=== PATIENT | female | born 1960 | race Caucasian/White ===

== ENCOUNTER → 2016-06-08 | Outpatient (CLI) | payer MEDICAID ==
--- NOTE | 2016-06-09 09:46 | MM ---
Reason for exam: screening (asymptomatic). Last mammogram was performed 1 year ago. History: Benign left US cyst aspiration of the left breast, April 21, 2009. Physical Findings: A clinical breast exam by your physician is recommended on an annual basis and results should be correlated with mammographic findings. MG 3D Screening Mammo W/Cad Bilateral CC and MLO view(s) were taken. Prior study comparison: June 17, 2015, right breast MG 3d work up w/cad RT. June 04, 2015, bilateral MG screening mammo w CAD. The breast tissue is heterogeneously dense. This may lower the sensitivity of mammography. No significant changes when compared with prior studies. ASSESSMENT: Benign, BI-RAD 2 RECOMMENDATION: Routine screening mammogram of both breasts in 1 year.
== END | disposition home or self-care (01) ==
LOC: RADMAMWWP 07:08
PROVIDERS: ATTEND Obstetrics & Gynecology
DX: Z12.31 Encounter for screening mammogram for malignant neoplasm of breast (principal)
CPT/HCPCS: 77063; G0202

== ENCOUNTER 2016-07-01 03:24 | Emergency (ER) | payer MEDICAID, OTHER ==
[2016-07-01 03:35] VITALS: RESP 16
--- NOTE | 2016-07-01 04:05 | ED ---
General Adult HPI - General Chief complaint: Extremity Injury, Upper Stated complaint: IHS/Shoulder Pain Time Seen by Provider: 07/01/16 03:59 Source: patient, RN notes reviewed Mode of arrival: ambulatory Limitations: no limitations - History of Present Illness Initial comments: Patient is a pleasant 55-year-old female presenting to the emergency Department with left shoulder pain. Patient was lifting a large patient which she felt a pull in her left shoulder. Patient points to the left proximal humerus/deltoid region. Patient states discomfort is minimal at this time. Patient is more worried that if she makes around movement symptoms could worsen. Discomfort is somewhat positional. No other area of injury. No history of chronic problems in this region. - Related Data Home Medications Medication Instructions Recorded Confirmed Levothyroxine Sodium [Tirosint] 75 mcg PO DAILY 07/03/15 07/01/16 B Complex-Vit C-Vit E-Zinc [Z-Bec] 1 tab PO DAILY 09/18/15 07/01/16 Biotin 5 mg PO DAILY 09/18/15 07/01/16 Ibuprofen [Motrin] 800 mg PO Q4-6H PRN 09/18/15 07/01/16 [place]-3 Fatty Acids/Fish Oil [Fish 1 each PO DAILY 09/18/15 07/01/16 Oil 1,000 mg Softgel] Allergies Allergy/AdvReac Type Severity Reaction Status Date / Time No Known Allergies Allergy Verified 07/01/16 03:35 Review of Systems ROS Statement: Those systems with pertinent positive or pertinent negative responses have been documented in the HPI. ROS Other: All systems not noted in ROS Statement are negative. Constitutional: Denies: fever Eyes: Denies: eye pain ENT: Denies: ear pain Respiratory: Denies: cough Cardiovascular: Denies: chest pain Endocrine: Denies: fatigue Gastrointestinal: Denies: abdominal pain Genitourinary: Denies: dysuria Musculoskeletal: Denies: back pain Skin: Denies: rash Neurological: Denies: weakness Past Medical History Past Medical History: Thyroid Disorder History of Any Multi-Drug Resistant Organisms: C-DIFF Date of last positivie culture/infection: c-diff MDRO Source:: 2004 Past Surgical History: Tonsillectomy Additional Past Surgical History / Comment(s): colonoscopy Past Anesthesia/Blood Transfusion Reactions: Motion Sickness, Postoperative Nausea & Vomiting (PONV) Past Psychological History: No Psychological Hx Reported Smoking Status: Former smoker Past Alcohol Use History: Occasional Additional Past Alcohol Use History / Comment(s): has smoked for 10 yrs. 1ppweek Past Drug Use History: None Reported - Past Family History Mother Family Medical History: No Reported History General Exam Limitations: no limitations General appearance: alert, in no apparent distress Head exam: Present: atraumatic Eye exam: Present: normal appearance Neck exam: Absent: tenderness Respiratory exam: Present: normal lung sounds bilaterally Cardiovascular Exam: Present: regular rate, normal rhythm Extremities exam: Present: normal inspection, full ROM. Absent: tenderness Neurological exam: Present: alert. Absent: motor sensory deficit Psychiatric exam: Present: normal affect, normal mood Skin exam: Absent: rash Course Vital Signs 07/01/16 03:31 Temperature 97.4 F L Pulse Rate 101 H Respiratory 16 Rate Blood Pressure 127/82 O2 Sat by Pulse 100 Oximetry Medical Decision Making - Medical Decision Making Patient reevaluated in updated. Patient requests return to work without limitations. - Radiology Data Interpreted by me: Left humerus x-ray shows no acute process Disposition Clinical Impression: Shoulder strain Disposition: HOME SELF-CARE Condition: Stable Instructions: Shoulder Sprain (ED) Additional Instructions: Please follow-up with [email or web address] in the next couple of days for recheck. Ice to affected area. [id number] Tylenol or Motrin as needed. Avoid heavy lifting/exertion. Return for increased pain, weakness, worsening symptoms or other concerns. If symptoms continue consider MRI or orthopedic evaluation. Referrals: Yo West MD [Primary Care Provider] - 1-2 days
--- NOTE | 2016-07-01 04:58 | XR ---
EXAM: XR Left Humerus, 2 or More Views. CLINICAL HISTORY: Reason: Pain TECHNIQUE: Frontal and lateral views of the left humerus. COMPARISON: No relevant prior studies available. FINDINGS: Bones/joints: Unremarkable. No acute fracture. No dislocation. Soft tissues: Unremarkable. IMPRESSION: No acute bony abnormality
[2016-07-01 05:16] VITALS: BP 126/82; PULSE 97; TEMP 98.2
== END 2016-07-01 04:55 | disposition home or self-care (01) ==
LOC: EC 03:24
DX: S46.912A Strain of unspecified muscle, fascia and tendon at shoulder and upper arm level, left arm, initial encounter (principal); E07.9 Disorder of thyroid, unspecified; Z87.891 Personal history of nicotine dependence; Z79.899 Other long term (current) drug therapy; X50.0XXA Overexertion from strenuous movement or load, initial encounter; Y93.F2 Activity, caregiving, lifting
CPT/HCPCS: 99283

== ENCOUNTER → 2017-02-22 | Outpatient (CLI) | payer MEDICAID ==
--- NOTE | 2017-02-22 08:25 | US ---
EXAMINATION TYPE: US abdomen complete DATE OF EXAM: 02/22/2017 COMPARISON: NONE CLINICAL HISTORY: 56-year-old female abnormal Liver Function R94.5. Technique: Multiple sonographic i mages of the abdomen are obtained. FINDINGS: LEVEL VIAL SEALER NOTES: Patient had extensive overlying bowel gas. Liver Length: 15.7 cm Gallbladder Wall: 0.3 cm CBD: 0.3 cm Spleen: 9.8 cm Right Kidney: 10.1 x 3.5 x 4.6 cm Left Kidney: 11.4 x 5.4 x 4.6 cm Pancreas: Obscured by bowel gas Liver: Relatively homogeneous echotexture without focal lesion. Gallbladder: wnl Evidence for sonographic Suazo's sign: no CBD: wnl Spleen: partially obscured by overlying bowel gas Right Kidney: echogenic focus, possible nonobstructive calculus measuring 3 mm in the mid to lower p ole. No hydronephrosis. Left Kidney: Inferior pole obscured by bowel gas . No hydronephrosis. Upper IVC: wnl Abd Aorta: Proximal aorta and bifurcation obscured by bowel gas. There appears to be underlying athe rosclerotic irregularity and ectasia of the mid abdominal aorta up to 2.6 cm. IMPRESSION: 1. No specific sonographic abnormality of the liver. 2. No biliary ductal dilatation. 3. Possible 3 mm nonobstructive right renal calculus. 4. Lower pole left kidney obscured by bowel gas. 5. Ectatic mid abdominal aorta at 2.6 cm.
== END | disposition home or self-care (01) ==
LOC: RADUSWWP 07:03
PROVIDERS: ATTEND Internal Medicine Geriatric Medicine
DX: I77.811 Abdominal aortic ectasia (principal)
CPT/HCPCS: 76700

== ENCOUNTER 2017-06-16 18:25 | Emergency (ER) | payer MEDICAID ==
[2017-06-16] MEDS ORDERED: SODIUM CHLORIDE 0.9% 500 ML IV STA (18:36)
[2017-06-16] MEDS ORDERED: RX INFO: IV CONTRAST WAS GIVEN 1 EACH MISC MISCELLANE PRN (18:36)
--- NOTE | 2017-06-16 18:41 | ED ---
Abdominal Pain HPI - General Chief Complaint: Abdominal Pain Stated Complaint: R Abd pain Time Seen by Provider: 06/16/17 18:32 Source: patient Mode of arrival: ambulatory Limitations: no limitations - History of Present Illness Initial Comments: 56-year-old female patient presented to the emergency department today for evaluation of right lower quadrant abdominal pain. Patient states that the pain started 3 hours ago and has been steadily worsening since. Patient states she did take ibuprofen for pain relief however did not help. She states that when she attempted to urinate it did cause an increase in pain. Patient states the pain worsens when she moves. The pain is starting to radiate into her back. She states that the area is tender to the touch. She denies any nausea or vomiting with this. Denies any constipation or diarrhea. Denies any abnormal vaginal bleeding or discharge. Patient denies any recent rash, shortness breath, chest pain, diarrhea, back pain, numbness, tingling, dizziness , weakness, hematuria, dysuria, urinary urgency, urinary frequency, headache, visual changes, or any other complaints. - Related Data Home Medications Medication Instructions Recorded Confirmed Ibuprofen [Motrin] 800 mg PO Q4-6H PRN 09/18/15 06/16/17 Levothyroxine Sodium [Synthroid] 75 mcg PO DAILY 06/16/17 06/16/17 Previous Rx's Medication Instructions Recorded Hydrocodone/Acetaminophen [[place] 1 tab PO Q6HR PRN #8 tab 06/16/17 5-325] Allergies Allergy/AdvReac Type Severity Reaction Status Date / Time No Known Allergies Allergy Verified 06/16/17 18:56 Review of Systems ROS Statement: Those systems with pertinent positive or pertinent negative responses have been documented in the HPI. ROS Other: All systems not noted in ROS Statement are negative. Past Medical History Past Medical History: Thyroid Disorder History of Any Multi-Drug Resistant Organisms: C-DIFF Date of last positivie culture/infection: c-diff MDRO Source:: 2004 Past Surgical History: Tonsillectomy Additional Past Surgical History / Comment(s): colonoscopy Past Anesthesia/Blood Transfusion Reactions: Motion Sickness, Postoperative Nausea & Vomiting (PONV) Past Psychological History: No Psychological Hx Reported Smoking Status: Former smoker Past Alcohol Use History: Occasional Past Drug Use History: None Reported - Past Family History Mother Family Medical History: No Reported History General Exam Limitations: no limitations General appearance: alert, in no apparent distress, other Eye exam: Present: normal appearance, PERRL, EOMI. Absent: scleral icterus, conjunctival injection, periorbital swelling ENT exam: Present: normal exam, normal oropharynx, mucous membranes moist Respiratory exam: Present: normal lung sounds bilaterally. Absent: respiratory distress, wheezes, rales, rhonchi, stridor Cardiovascular Exam: Present: regular rate, normal rhythm, normal heart sounds. Absent: systolic murmur, diastolic murmur, rubs, gallop, clicks GI/Abdominal exam: Present: soft, tenderness (Exquisitely tender to the right lower quadrant), normal bowel sounds. Absent: distended, guarding, rebound, rigid Back exam: Present: normal inspection. Absent: CVA tenderness (R), CVA tenderness (L) Neurological exam: Present: alert, oriented X3, CN II-XII intact Psychiatric exam: Present: normal affect, normal mood Skin exam: Present: warm, dry, intact, normal color. Absent: rash Course Vital Signs 06/16/17 06/16/17 18:28 20:09 Temperature 98.4 F 97.1 F L Pulse Rate 88 82 Respiratory 20 18 Rate Blood Pressure 138/79 120/71 O2 Sat by Pulse 99 96 Oximetry Medical Decision Making - Medical Decision Making 56-year-old female patient presents to the emergency department today for evaluation of right lower quadrant abdominal pain. Physical examination did reveal right lower quadrant abdominal tenderness. Labs are unremarkable. Urinalysis does show small amount of blood. A CT of the abdomen and pelvis was obtained and did show mild small bowel ileus and right ovarian cyst. I did discuss findings with the patient. I did discuss possibility of early appendicitis not yet detected on CT. Return parameters were discussed in detail. She is instructed to follow-up with her primary care physician for recheck in 1-2 days. She is instructed to return here immediately for any new, worsening, or concerning symptoms. She verbalizes understanding and agrees with this plan. - Lab Data Result diagrams: 06/16/17 18:54 06/16/17 18:54 Lab Results 06/16/17 06/16/17 06/16/17 Range/Units 18:54 18:54 18:54 WBC 6.7 (3.8-10.6) k/uL RBC 4.17 (3.80-5.40) m/uL Hgb 13.8 (11.4-16.0) gm/dL Hct 40.2 (34.0-46.0) % MCV 96.3 (80.0-100.0) fL MCH 33.1 (25.0-35.0) pg MCHC 34.4 (31.0-37.0) g/dL RDW 12.3 (11.5-15.5) % Plt Count 322 (150-450) k/uL Neutrophils % 61 % Lymphocytes % 29 % Monocytes % 5 % Eosinophils % 2 % Basophils % 1 % Neutrophils # 4.1 (1.3-7.7) k/uL Lymphocytes # 1.9 (1.0-4.8) k/uL Monocytes # 0.3 (0-1.0) k/uL Eosinophils # 0.2 (0-0.7) k/uL Basophils # 0.1 (0-0.2) k/uL Sodium 145 (137-145) mmol/L Potassium 3.9 (3.5-5.1) mmol/L Chloride 105 (98-107) mmol/L Carbon Dioxide 27 (22-30) mmol/L Anion Gap 13 mmol/L BUN 12 (7-17) mg/dL Creatinine 0.60 (0.52-1.04) mg/dL Est GFR (MDRD) Af Amer >60 (>60 ml/min/1.73 sqM) Est GFR (MDRD) Non-Af >60 (>60 ml/min/1.73 sqM) Glucose 91 (74-99) mg/dL Calcium 9.8 (8.4-10.2) mg/dL Total Bilirubin 0.3 (0.2-1.3) mg/dL AST 41 H (14-36) U/L ALT 54 H (9-52) U/L Alkaline Phosphatase 150 H (38-126) U/L Total Protein 7.2 (6.3-8.2) g/dL Albumin 4.7 (3.5-5.0) g/dL Amylase 53 (30-110) U/L Lipase 82 (23-300) U/L Urine Color Yellow Urine Appearance Clear (Clear) Urine pH 5.5 (5.0-8.0) Ur Specific [place] 1.021 (1.001-1.035) Urine Protein Negative (Negative) Urine Glucose (UA) Negative (Negative) Urine Ketones Negative (Negative) Urine Blood Trace H (Negative) Urine Nitrite Negative (Negative) Urine Bilirubin Negative (Negative) Urine Urobilinogen <2.0 (<2.0) mg/dL Ur Leukocyte Esterase Negative (Negative) Urine RBC 5 (0-5) /hpf Urine WBC 15 H (0-5) /hpf Ur Squamous Epith Cells 10 H (0-4) /hpf Amorphous Sediment Occasional H (None) /hpf Urine Mucus Rare H (None) /hpf - Radiology Data Radiology results: report reviewed, image reviewed CT of the abdomen and pelvis with contrast was obtained, report was reviewed in its entirety. Impression by Dr. Mtz shows evidence for some mild small bowel ileus. No evidence of a bowel obstruction. There is clearing of a cyst in the left ovary compared to old exam. There is increase in right ovary cyst. No sign of appendicitis. Disposition Clinical Impression: Abdominal pain, Ileus, Right ovarian cyst Disposition: HOME SELF-CARE Condition: Good Instructions: Abdominal Pain (ED) Additional Instructions: Follow up with her primary care physician for reevaluation. Return here immediately for any new, worsening, or concerning symptoms. Prescriptions: Hydrocodone/Acetaminophen [[place] 5-325] 1 tab PO Q6HR PRN #8 tab PRN Reason: Pain Referrals: Yo West MD [Primary Care Provider] - 1-2 days Time of Disposition: 19:59
[2017-06-16 19:12] LABS: Basophils # (A) 0.1 k/uL (0-0.2); Basophils % (A) 1 %; Eosinophils # (A) 0.2 k/uL (0-0.7); Eosinophils % (A) 2 %; HCT 40.2 % (34.0-46.0); HGB 13.8 gm/dL (11.4-16.0); Lymphocytes # (A) 1.9 k/uL (1.0-4.8); Lymphocytes % (A) 29 %; MCH 33.1 pg (25.0-35.0); MCHC 34.4 g/dL (31.0-37.0); MCV 96.3 fL (80.0-100.0); Mean Platelet Volume 7.6; Monocytes # (A) 0.3 k/uL (0-1.0); Monocytes % (A) 5 %; Neutrophils # (A) 4.1 k/uL (1.3-7.7); Neutrophils % (A) 61 %; Platelet Count 322 k/uL (150-450); RBC 4.17 m/uL (3.80-5.40); RDW 12.3 % (11.5-15.5); WBC 6.7 k/uL (3.8-10.6)
[2017-06-16 19:17] LABS: ALT 54 U/L (9-52); AST 41 U/L (14-36); Albumin 4.7 g/dL (3.5-5.0); Alkaline Phosphatase 150 U/L (38-126); Amorphous Sediment,Urine Occasional /hpf; Amylase 53 U/L (30-110); Anion Gap 13 mmol/L; Appearance,Urine Clear (Clear); Bilirubin,Urine Negative (Negative); Blood Urea Nitrogen 12 mg/dL (7-17); Blood,Urine Trace (Negative); Calcium 9.8 mg/dL (8.4-10.2); Carbon Dioxide 27 mmol/L (22-30); Chloride 105 mmol/L (98-107); Color,Urine Yellow; Glucose 91 mg/dL (74-99); Glucose,Urine (UA) Negative (Negative); Ketones,Urine Negative (Negative); Leukocyte Esterase,Urine Negative (Negative); Lipase 82 U/L (23-300); Mucus,Urine Rare /hpf; PH, Urine 5.5 (5.0-8.0); Potassium 3.9 mmol/L (3.5-5.1); Protein,Urine Negative (Negative); RBC,Urine 5 /hpf (0-5); Sodium 145 mmol/L (137-145); Specific Gravity,Urine 1.021 (1.001-1.035); Squamous Epithelial Cell,Urine 10 /hpf (0-4); Total Bilirubin 0.3 mg/dL (0.2-1.3); Total Protein 7.2 g/dL (6.3-8.2); Urobilinogen,Urine <2.0 mg/dL (<2.0); WBC,Urine 15 /hpf (0-5)
--- NOTE | 2017-06-16 19:39 | CT ---
EXAMINATION TYPE: CT abdomen pelvis w con DATE OF EXAM: 06/16/2017 COMPARISON: 08/18/2009 HISTORY: RLQ pain. CT DLP: 976 mGycm Automated exposure control for dose reduction was used. TECHNIQUE: Helical acquisition of images was performed from the lung bases through the pelvis. CONTRAST: Performed without Oral Contrast and with IV Contrast, patient injected with 100 mL of Omnipaque 300. FINDINGS: There is mild scarring and subsegmental atelectasis at the lung bases. There is no pleural effusion. Liver spleen appear normal. There is no evidence of pancreatic mass. Bile ducts are not dilated. Gall bladder appears normal. There is no adrenal mass. Kidneys show satisfactory contrast opacification. There is no hydronephrosi s. There is thoracolumbar dextroscoliosis. There are a few fluid-filled loops of small bowel in the lower abdomen. Large bowel pattern appears n ormal. There is no ascites. There is no sign of free air. There is a 3.3 cm cyst on the right ovary. I see no bony destructive process. Appendix is not seen. Appendix is seen posteriorly and appears unr emarkable. I see no bony destructive process. IMPRESSION: THERE IS EVIDENCE FOR SOME MILD SMALL BOWEL ILEUS. NO EVIDENCE OF A BOWEL OBSTRUCTION. THERE IS CLEAR ING OF A CYST ON THE LEFT OVARY COMPARED TO OLD EXAM. THERE IS INCREASE IN THE RIGHT OVARY CYST. NO S IGN OF APPENDICITIS..
[2017-06-16] MEDS ORDERED: ONDANSETRON 4 MG/2 ML VIAL IVP STA (19:55)
[2017-06-16] MEDS ORDERED: MORPHINE SULFATE 4 MG/ML SYRINGE IVP ONE (19:55)
[2017-06-16 20:12] VITALS: BP 120/71; PULSE 82; RESP 18; TEMP 97.1
== END 2017-06-16 20:15 | disposition home or self-care (01) ==
LOC: EC 18:25
DX: K56.7 Ileus, unspecified (principal); N83.201 Unspecified ovarian cyst, right side; N83.202 Unspecified ovarian cyst, left side; M54.9 Dorsalgia, unspecified; R31.9 Hematuria, unspecified; E07.9 Disorder of thyroid, unspecified; Z87.891 Personal history of nicotine dependence; Z79.899 Other long term (current) drug therapy; Z53.20 Procedure and treatment not carried out because of patient's decision for unspecified reasons
CPT/HCPCS: 36415; 80053; 82150; 83690; 85025; 81001; 74177; 99284; 96374; 96361; J2405; Q9967

== ENCOUNTER → 2017-07-20 | Outpatient (CLI) | payer MEDICAID ==
--- NOTE | 2017-07-22 10:34 | MM ---
Reason for exam: screening (asymptomatic). Last mammogram was performed 1 year and 1 month ago. History: Benign left US cyst aspiration of the left breast, April 21, 2009. Physical Findings: A clinical breast exam by your physician is recommended on an annual basis and results should be correlated with mammographic findings. MG 3D Screening Mammo W/Cad Bilateral CC and MLO view(s) were taken. Prior study comparison: June 08, 2016, bilateral MG 3d screening mammo w/cad. June 17, 2015, right breast MG 3d work up w/cad RT. The breast tissue is heterogeneously dense. This may lower the sensitivity of mammography. No suspicious abnormality. No significant changes when compared with prior studies. ASSESSMENT: Negative, BI-RAD 1 RECOMMENDATION: Routine screening mammogram of both breasts in 1 year.
== END | disposition home or self-care (01) ==
LOC: RADMAMWWP 07:02
PROVIDERS: ATTEND Obstetrics & Gynecology
DX: Z12.31 Encounter for screening mammogram for malignant neoplasm of breast (principal)
CPT/HCPCS: 77063; 77067

== ENCOUNTER 2017-12-16 08:31 | Day surgery (SDC) | payer MEDICAID ==
[2017-12-13 09:18] VITALS: BMI 23.5
[~2017-12-16 08:31] MED LIST: LACTATED RINGERS 1,000 ML IV SCH
[2017-12-16 08:56] VITALS: TEMP 97.9
[2017-12-16] MEDS ORDERED: LIDOCAINE 1% 20 ML VIAL (10MG/ML) FOR IV START INTRADERMA ONE (08:56)
[2017-12-16] MEDS ORDERED: LIDOCAINE 1% INJ 10MG/ML (20 ML MDV) ONE (10:40)
[2017-12-16] MEDS ORDERED: PROPOFOL 10 MG/ML 20 ML VIAL IV ONE (10:40)
--- NOTE | 2017-12-16 10:44 | P.GSHP ---
History of Present Illness H&P Date: 12/16/17 Chief Complaint: Colon cancer screening, history of polyps 54-year-old female presents for colonoscopy. Last colonoscopy 2012. Patient had a colon polyp at that time. No bowel complaints. Past Medical History Past Medical History: Thyroid Disorder Additional Past Medical History / Comment(s): MIGRAINES History of Any Multi-Drug Resistant Organisms: C-DIFF Date of last positivie culture/infection: c-diff MDRO Source:: 2004 Past Surgical History: Tonsillectomy Additional Past Surgical History / Comment(s): Colonoscopy. VARICOSE VEIN STRIPPING. Past Anesthesia/Blood Transfusion Reactions: Motion Sickness, Postoperative Nausea & Vomiting (PONV) Smoking Status: Former smoker - Past Family History Mother Family Medical History: No Reported History Medications and Allergies Home Medications Medication Instructions Recorded Confirmed Type Ibuprofen [Motrin] 800 mg PO Q4-6H PRN 09/18/15 12/13/17 History Levothyroxine Sodium [Synthroid] 75 mcg PO MOTUWETHFRSA 06/16/17 12/13/17 History B Complex-Vit C-Vit E-Zinc [Z-Bec] 1 tab PO DAILY 12/13/17 12/13/17 History Biotin (Unknown Dose) 1 tab PO DAILY 12/13/17 12/16/17 History [place]/D3/Mag11/Zinc/Jigger Crown Pouncing Machine Operator/Tramaine/Bor 1 each PO DAILY 12/13/17 12/13/17 History [Caltrate 600+D Plus Tablet] Gelatin Capsule 1 cap PO DAILY 12/13/17 12/16/17 History Levothyroxine Sodium [Synthroid] 37.5 mcg PO DOVER 12/13/17 12/13/17 History [place]-3 Fatty Acids [[place]-3] 1,000 mg PO DAILY 12/13/17 12/13/17 History Vitamin D3 (Unknown Dose) 1 tab PO DAILY 12/13/17 12/16/17 History Allergies Allergy/AdvReac Type Severity Reaction Status Date / Time No Known Allergies Allergy Verified 12/16/17 08:45 Surgical - Exam Vital Signs Temp Pulse Resp BP Pulse Ox 97.9 F 96 16 134/89 97 12/16/17 08:54 12/16/17 08:54 12/16/17 08:54 12/16/17 08:54 12/16/17 08:54 Abdomen: Soft, nontender, nondistended Assessment and Plan (1) Colon cancer screening Narrative/Plan: Will proceed with colonoscopy at this time Current Visit: Yes Status: Acute Code(s): Z12.11 - ENCOUNTER FOR SCREENING FOR MALIGNANT NEOPLASM OF COLON SNOMED Code(s): 800404220
--- NOTE | 2017-12-16 11:04 | P.PCN ---
Date of Procedure: 12/16/17 Procedure(s) Performed: PREOPERATIVE DIAGNOSIS: Colon cancer screening with history of polyps POSTOPERATIVE DIAGNOSIS: Diverticulosis, small hemorrhoids PROCEDURE: Colonoscopy ANESTHESIA: MAC SURGEON: Lazarus Uribe M.D. SPECIMENS: None ENDOSCOPIC PROCEDURE: The patient was placed on the endoscopy table in the left decubitus position. The Olympus colonoscope was inserted into the anus and passed under direct visualization to the base of the cecum. The appendiceal orifice was visualized. From that point the scope was slowly withdrawn inspecting all surfaces carefully. There were no neoplastic inflammatory or polypoid lesions throughout the cecum, ascending, transverse, descending, sigmoid and rectum. There was moderate diverticulosis noted in the left colon. Digital rectal examination was normal. The patient was taken to the recovery room in stable condition per anesthesia guidelines. RECOMMENDATIONS: Increase fiber. Follow-up colonoscopy 5 years.
[2017-12-16 11:18] VITALS: RESP 18
[2017-12-16 11:32] VITALS: BP 119/86; PULSE 75
== END 2017-12-16 11:52 | disposition home or self-care (01) ==
LOC: ORWHC2ENDO 08:31
PROVIDERS: ATTEND Surgery
DX: Z12.11 Encounter for screening for malignant neoplasm of colon (principal); K57.30 Diverticulosis of large intestine without perforation or abscess without bleeding; K64.9 Unspecified hemorrhoids; E07.9 Disorder of thyroid, unspecified; Z86.010 Personal history of colon polyps; Z79.890 Hormone replacement therapy; Z79.899 Other long term (current) drug therapy; Z87.891 Personal history of nicotine dependence

== ENCOUNTER → 2018-07-18 | Outpatient (CLI) | payer MEDICAID ==
--- NOTE | 2018-07-18 13:13 | MM ---
Reason for exam: screening (asymptomatic). Last mammogram was performed 1 year ago. History: Patient is postmenopausal. Benign left US cyst aspiration of the left breast, April 21, 2009. Physical Findings: A clinical breast exam by your physician is recommended on an annual basis and results should be correlated with mammographic findings. MG 3D Screening Mammo W/Cad Bilateral CC and MLO view(s) were taken. Prior study comparison: July 20, 2017, bilateral MG 3d screening mammo w/cad. June 08, 2016, bilateral MG 3d screening mammo w/cad. The breast tissue is extremely dense which could obscure a lesion on mammography. Benign calcifications in the left breast. No significant changes when compared with prior studies. ASSESSMENT: Benign, BI-RAD 2 RECOMMENDATION: Routine screening mammogram of both breasts in 1 year.
== END | disposition home or self-care (01) ==
LOC: RADMAMWWP 07:07
PROVIDERS: ATTEND Obstetrics & Gynecology
DX: Z12.31 Encounter for screening mammogram for malignant neoplasm of breast (principal)
CPT/HCPCS: 77063; 77067

== ENCOUNTER → 2019-09-17 | Outpatient (CLI) | payer MEDICAID | END | disposition home or self-care (01) | LOC: LABWHC1 08:10 | PROVIDERS: ATTEND Pediatrics Pediatric Infectious Diseases | DX: Z20.828 Contact with and (suspected) exposure to other viral communicable diseases (principal) ==

== ENCOUNTER → 2020-01-01 | Outpatient (CLI) | payer MEDICAID ==
--- NOTE | 2020-01-02 11:51 | MM ---
Reason for exam: screening (asymptomatic). Last mammogram was performed 1 year and 5 months ago. History: Patient is postmenopausal. Benign left US cyst aspiration of the left breast, April 21, 2009. Physical Findings: A clinical breast exam by your physician is recommended on an annual basis and results should be correlated with mammographic findings. MG 3D Screening Mammo W/Cad Bilateral CC and MLO view(s) were taken. Prior study comparison: July 18, 2018, bilateral MG 3d screening mammo w/cad. July 20, 2017, bilateral MG 3d screening mammo w/cad. The breast tissue is heterogeneously dense. This may lower the sensitivity of mammography. There are benign appearing round calcifications bilaterally. There is no discrete abnormality. ASSESSMENT: Benign, BI-RAD 2 RECOMMENDATION: Routine screening mammogram of both breasts in 1 year.
== END | disposition home or self-care (01) ==
LOC: RADMAMWWP 07:07
PROVIDERS: ATTEND Obstetrics & Gynecology
DX: Z12.31 Encounter for screening mammogram for malignant neoplasm of breast (principal)
CPT/HCPCS: 77063; 77067

== ENCOUNTER 2020-08-18 07:08 | Emergency (ER) | payer MEDICAID, OTHER ==
[2020-08-18 07:16] VITALS: RESP 18; TEMP 98
--- NOTE | 2020-08-18 07:34 | XR ---
EXAMINATION TYPE: XR knee complete RT DATE OF EXAM: 08/18/2020 COMPARISON: NONE HISTORY: Pain TECHNIQUE: Three views are submitted. FINDINGS: Mild narrowing of the medial compartment of the knee joint and patellofemoral joint. Osseous structu res are intact. No acute fracture seen. IMPRESSION: 1. No acute fracture or dislocation. Mild arthropathy.
--- NOTE | 2020-08-18 08:36 | US ---
EXAMINATION TYPE: US venous doppler duplex LE RT DATE OF EXAM: 08/18/2020 8:06 AM COMPARISON: NONE CLINICAL HISTORY: calf pain/swelling. Calf pain. No redness. No hx DVT. Not on blood thinners. SIDE PERFORMED: Right TECHNIQUE: The lower extremity deep venous system is examined utilizing real time linear array sonog min with graded compression, doppler sonography and color-flow sonography. VESSELS IMAGED: Common Femoral Vein Deep Femoral Vein Greater Saphenous Vein * Femoral Vein Popliteal Vein Small Saphenous Vein * Proximal Calf Veins (* superficial vessels) Right Leg: Negative for DVT Grayscale, color doppler, spectral doppler imaging performed of the deep veins of the right lower ext remity. There is normal flow, compressibility, vascular waveforms. IMPRESSION: No ultrasound evidence for acute DVT in the right lower extremity.
[2020-08-18] MEDS ORDERED: ACET/COD 300 MG/30 MG STARTER PACK 6 TAB BTL PO STA (08:39)
--- NOTE | 2020-08-18 08:40 | ED ---
Lower Extremity Injury HPI - General Chief Complaint: Extremity Injury, Lower Stated Complaint: Knee pain, IHS Time Seen by Provider: 08/18/20 07:17 Source: patient Mode of arrival: ambulatory Limitations: no limitations - History of Present Illness Initial Comments: 59-year-old female presenting today for chief complaint of right knee pain calf swelling. 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 Patient wanted sure she had no blood clot or injury to the knee secondary to lifting and presented to the ER for further evaluation patient denies any falls struck trauma she denies any fevers redness of the knee states it appears slightly swollen. She denies any specific localized tenderness to the popliteal fossa. pt dneies chest pain, dyspnea. Pt can weight bear as well as bend knee wihthout difficulty-but some discomfort. ON arrival patient is pleasant in no acute distress. - Related Data Home Medications Medication Instructions Recorded Confirmed Ibuprofen [Motrin] 800 mg PO Q4-6H PRN 09/18/15 12/13/17 Levothyroxine Sodium [Synthroid] 75 mcg PO MOTUWETHFRSA 06/16/17 12/13/17 B Complex-Vit C-Vit E-Zinc [Z-Bec] 1 tab PO DAILY 12/13/17 12/13/17 Biotin (Unknown Dose) 1 tab PO DAILY 12/13/17 12/16/17 Arsen/D3/Mag11/Zinc/Dentist/Owner/Tramaine/Bor 1 each PO DAILY 12/13/17 12/13/17 [Caltrate 600+D Plus Tablet] Gelatin Capsule 1 cap PO DAILY 12/13/17 12/16/17 Levothyroxine Sodium [Synthroid] 37.5 mcg PO DOVER 12/13/17 12/13/17 Oliver-3 Fatty Acids [Oliver-3] 1,000 mg PO DAILY 12/13/17 12/13/17 Vitamin D3 (Unknown Dose) 1 tab PO DAILY 12/13/17 12/16/17 Allergies Allergy/AdvReac Type Severity Reaction Status Date / Time No Known Allergies Allergy Verified 08/18/20 07:13 Review of Systems ROS Statement: Those systems with pertinent positive or pertinent negative responses have been documented in the HPI. ROS Other: All systems not noted in ROS Statement are negative. Past Medical History Past Medical History: Thyroid Disorder Additional Past Medical History / Comment(s): MIGRAINES History of Any Multi-Drug Resistant Organisms: C-DIFF Date of last positivie culture/infection: c-diff MDRO Source:: 2004 Past Surgical History: Tonsillectomy Additional Past Surgical History / Comment(s): Colonoscopy. VARICOSE VEIN STRIPPING. Past Anesthesia/Blood Transfusion Reactions: Motion Sickness, Postoperative Nausea & Vomiting (PONV) Past Psychological History: No Psychological Hx Reported Smoking Status: Never smoker Past Alcohol Use History: Occasional Past Drug Use History: None Reported - Past Family History Mother Family Medical History: No Reported History General Exam - General Exam Comments Initial Comments: General: The patient is awake and alert, in no distress, and does not appear acutely ill. Eye: +3 mm pupils are equal, round and reactive to light, extra-ocular movements are intact. No nystagmus. There is normal conjunctiva bilaterally. No signs of icterus. Ears, nose, mouth and throat: There are moist mucous membranes and no oral lesions. Gastrointestinal: Soft, non-distended, non-tender abdomen without masses or organomegaly noted. There is no rebound or guarding present. Musculoskeletal: Normal ROM, of the knees and ankles b/l. No bovious right knee swelling, maybe mild. no redness no warmth. no pain out of proportion. able to weight bear. Strength 5/5. Sensation intact. DP pulses equal bilaterally 2+. Calf is slightly more swollen on right than left, edema noted at ankle. no pain. Neurological: A&O x 3. CN II-XII intact grossly, There are no obvious motor or sensory deficits. Coordination appears grossly intact. Speech is normal. Skin: Skin is warm and dry and no rashes or lesions are noted. Psychiatric: Cooperative, appropriate mood & affect, normal judgment. Limitations: no limitations Course Vital Signs 08/18/20 08/18/20 07:14 08:49 Temperature 98 F 98 F Pulse Rate 80 74 Respiratory 18 18 Rate Blood Pressure 150/93 120/96 O2 Sat by Pulse 99 97 Oximetry Medical Decision Making - Medical Decision Making XR arthritis otherwise no acute process. no fevers. no redness. able to range/weight bear without significant pain.US (-) DVT.Pt will be discharged with pcp f/u- if pain present > 5 days is to f/u with orthopedic surgery. pt states she has a week off after today and can rest. given work note for today. return and repeat US discussed nad pt discharged appearing well. Dr Wild agreeable to care plan. Disposition Clinical Impression: Strain of right knee, Right knee pain, Right leg swelling Disposition: HOME SELF-CARE Condition: Good Instructions (If sedation given, give patient instructions): Knee Sprain (ED) Additional Instructions: Please use medication as discussed. Please follow-up with orthopedic surgery in the next week, PCP in 1-2 days. Rest, ICE and elevate the affected leg. Return for worsening symptoms. Please return to emergency room if the symptoms increase or worsen or for any other concerns. Is patient prescribed a controlled substance at d/c from ED?: No Referrals: Yo West MD [Primary Care Provider] - 1-2 days Marko Green MD [STAFF PHYSICIAN] - 1-2 days Time of Disposition: 08:39
[2020-08-18 08:51] VITALS: BP 120/96; PULSE 74
== END 2020-08-18 08:49 | disposition home or self-care (01) ==
LOC: EC 07:08
DX: S86.911A Strain of unspecified muscle(s) and tendon(s) at lower leg level, right leg, initial encounter (principal); E07.9 Disorder of thyroid, unspecified; Z79.890 Hormone replacement therapy; Z79.1 Long term (current) use of non-steroidal anti-inflammatories (NSAID); X58.XXXA Exposure to other specified factors, initial encounter
CPT/HCPCS: 99283

== ENCOUNTER → 2020-08-29 | Outpatient (CLI) | payer OTHER ==
--- NOTE | 2020-08-29 10:19 | US ---
EXAMINATION TYPE: US venous doppler duplex LE RT DATE OF EXAM: 08/29/2020 10:10 AM COMPARISON: NONE CLINICAL HISTORY: Pain swelling of Rt knee S83.91XA. SIDE PERFORMED: Right TECHNIQUE: The lower extremity deep venous system is examined utilizing real time linear array sonog min with graded compression, doppler sonography and color-flow sonography. VESSELS IMAGED: Common Femoral Vein Deep Femoral Vein Greater Saphenous Vein * Femoral Vein Popliteal Vein Small Saphenous Vein * Proximal Calf Veins (* superficial vessels) Right Leg: Negative for DVT At patients area of pain anterior right knee, there does appear to be some free fluid. IMPRESSION: Grayscale, color doppler, spectral doppler imaging performed of the deep veins of the lo wer extremities. There is normal flow, compressibility, vascular waveforms. No evidence of right lo wer extremity DVT.
== END | disposition home or self-care (01) ==
LOC: RADUSWWP 09:40
PROVIDERS: ATTEND Emergency Medicine
DX: S83.91XA Sprain of unspecified site of right knee, initial encounter (principal)

== ENCOUNTER → 2020-09-03 | Outpatient (CLI) | payer OTHER ==
--- NOTE | 2020-09-03 17:23 | MR ---
EXAMINATION TYPE: MR knee RT wo con DATE OF EXAM: 09/03/2020 COMPARISON: Radiograph 08/18/2020 HISTORY: 59-year-old female with right knee pain TECHNIQUE: Multiplanar, multisequence imaging of the right knee is performed without IV contrast. FINDINGS: The ACL and PCL are intact. Mild edema on either side of the intact MCL. Some intermediate signal of the proximal LCL proper. LCL complex otherwise remains intact. There is an oblique intra-articular margin tear of the posterior horn of the lateral meniscus, sagitt al image 21. Additional inner margin oblique tear involving the lateral meniscal body, coronal image 18. There is a high-grade focal cartilage fissure involving the mid central aspect of the lateral femoral condyle articular surface measuring 3 mm wide and 2.0 cm AP, refer to coronal image 18, axial image 11, and sagittal image 20. Mild diffuse thinning of lateral compartment articular cartilage volume. The medial meniscus is intact. There is a moderate to deep cartilage fissure along the mid central aspect of the medial femoral cond yle articular surface measuring up to 5 mm wide and 1.2 cm AP, refer to coronal image 17, sagittal im age 12, and axial image 10. Mild diffuse thinning of medial compartment articular cartilage volume. High-grade cartilage loss along the medial patellar facet and moderate along the medial trochlear fac et. Mild cartilage thinning superior half of the lateral patellar facet. There is a moderate joint effusion and mild chronic synovitis. There is a ruptured Sharif's cyst with extensive deep soft tissue edema extending both superiorly and posteriorly on the backside of the kne e. Extensor mechanism is intact. Normal popliteal artery anatomy. Mild generalized loss of muscle bulk. No suspicious bone marrow replacement. IMPRESSION: 1. Grade 1 MCL sprain. Grade 1 sprain of the proximal LCL proper as well. 2. Oblique inner margin tears involving the posterior horn and body of the lateral meniscus. 3. Deep cartilage fissure measuring 20 x 3 mm involving the mid central aspect of the lateral femoral condyle articular surface. An additional moderate to high-grade cartilage fissure similarly involvin g the medial femoral condyle measuring 12 x 5 mm. 4. Severe cartilage loss along the medial patellar facet and moderate along the medial trochlear face t. 5. Moderate joint effusion with mild chronic synovitis. Frankly ruptured Sharif's cyst with extensive deep soft tissue edema and fluid posteriorly.
== END | disposition home or self-care (01) ==
LOC: RADMRIMAIN 12:46
PROVIDERS: ATTEND Emergency Medicine
DX: S83.91XD Sprain of unspecified site of right knee, subsequent encounter (principal); S83.281A Other tear of lateral meniscus, current injury, right knee, initial encounter; M24.151 Other articular cartilage disorders, right hip; M65.9 Synovitis and tenosynovitis, unspecified; M71.21 Synovial cyst of popliteal space [Baker], right knee

== ENCOUNTER → 2021-12-14 | Outpatient (CLI) | payer MEDICAID ==
--- NOTE | 2021-12-14 09:53 | MM ---
Reason for Exam: Screening (asymptomatic). Last mammogram was performed 1 year(s) and 11 month(s) ago. Patient History: Menarche at age 13. First Full-Term at age 28. Postmenopausal. 04/21/2009, Benign Cyst Aspiration on the left side. Risk Values: Farzana 5 year model risk: 1.5%. NCI Lifetime model risk: 7.0%. Prior Study Comparison: 07/20/2017 Bilateral Screening Mammogram, [facility]. 07/18/2018 Bilateral Screening Mammogram, [facility]. 01/01/2020 Bilateral Screening Mammogram, [facility]. Tissue Density: The breast tissue is heterogeneously dense. This may lower the sensitivity of mammography. Findings: Analyzed By CAD. There are benign-appearing calcifications. There is no suspicious group of microcalcifications or new suspicious mass in either breast. Overall Assessment: Negative, BI-RAD 1 Management: Screening Mammogram of both breasts in 1 year. A clinical breast exam by your physician is recommended on an annual basis and results should be correlated with mammographic findings. Electronically signed and approved by: Eldon Mcclelland DO
== END | disposition home or self-care (01) ==
LOC: RADMAMWWP 07:24
PROVIDERS: ATTEND Internal Medicine Geriatric Medicine
DX: Z12.31 Encounter for screening mammogram for malignant neoplasm of breast (principal); Z78.0 Asymptomatic menopausal state
CPT/HCPCS: 77063; 77067

== ENCOUNTER 2022-11-12 21:55 | Emergency (ER) | payer MEDICAID, OTHER ==
[2022-11-12 22:08] VITALS: RESP 18
[2022-11-12] MEDS ORDERED: MORPHINE SULFATE 4 MG/ML SYRINGE IV STA (23:34)
[2022-11-12] MEDS ORDERED: KETOROLAC 15 MG/ML 1 ML VIAL IVP STA (23:34)
[2022-11-12] MEDS ORDERED: SODIUM CHLORIDE 0.9% 500 ML 500 ML IV STA (23:34)
--- NOTE | 2022-11-12 23:36 | ED ---
Back Pain HPI - General Chief Complaint: Extremity Problem,Nontraumatic Stated Complaint: IHS, Back Injury Time Seen by Provider: 11/12/22 22:06 Source: patient, RN notes reviewed, old records reviewed Limitations: no limitations - History of Present Illness Initial Comments: This is a 61-year-old female to ER today. Patient presents today for evaluation of severe back pain back pain left lower sided abdominal pain and back pain into her buttocks and right on her pelvis. Patient states the pain is causing her difficulty walking with inability to ambulate. Pain is severe. 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 Symptoms began at work tonight and it persisted. No prior history of similar. No prior history of back pain or trauma MD Complaint: back pain, other (Pelvic pain) -: hour(s) Similar Symptoms Previously: Yes Place: home Radiation: none Severity: moderate Severity scale (1-10): 4 Quality: sharp Consistency: constant Improves With: none Worsens With: none Context: while lifting Associated Symptoms: denies other symptoms - Related Data Home Medications Medication Instructions Recorded Confirmed Ibuprofen [Motrin] 800 mg PO Q4-6H PRN 09/18/15 12/13/17 Levothyroxine Sodium [Synthroid] 75 mcg PO MOTUWETHFRSA 06/16/17 12/13/17 B Complex-Vit C-Vit E-Zinc [Z-Bec] 1 tab PO DAILY 12/13/17 12/13/17 Biotin (Unknown Dose) 1 tab PO DAILY 12/13/17 12/16/17 Arsen/D3/Mag11/Zinc/Green End Worker/Tramaine/Bor 1 each PO DAILY 12/13/17 12/13/17 [Caltrate 600+D Plus Tablet] Gelatin Capsule 1 cap PO DAILY 12/13/17 12/16/17 Levothyroxine Sodium [Synthroid] 37.5 mcg PO DOVER 12/13/17 12/13/17 [place]-3 Fatty Acids [[place]-3] 1,000 mg PO DAILY 12/13/17 12/13/17 Vitamin D3 (Unknown Dose) 1 tab PO DAILY 12/13/17 12/16/17 Allergies Allergy/AdvReac Type Severity Reaction Status Date / Time No Known Allergies Allergy Verified 11/12/22 22:08 Review of Systems ROS Statement: Those systems with pertinent positive or pertinent negative responses have been documented in the HPI. ROS Other: All systems not noted in ROS Statement are negative. Past Medical History Past Medical History: Thyroid Disorder Additional Past Medical History / Comment(s): MIGRAINES History of Any Multi-Drug Resistant Organisms: C-DIFF Date of last positivie culture/infection: c-diff MDRO Source:: 2004 Past Surgical History: Tonsillectomy Additional Past Surgical History / Comment(s): Colonoscopy. VARICOSE VEIN STRIPPING. Past Anesthesia/Blood Transfusion Reactions: Motion Sickness, Postoperative Nausea & Vomiting (PONV) Past Psychological History: No Psychological Hx Reported Smoking Status: Never smoker Past Alcohol Use History: Occasional Past Drug Use History: None Reported - Past Family History Mother Family Medical History: No Reported History General Exam Limitations: no limitations General appearance: alert, in no apparent distress Head exam: Present: atraumatic, normocephalic, normal inspection Eye exam: Present: normal appearance, PERRL, EOMI. Absent: scleral icterus, conjunctival injection, periorbital swelling ENT exam: Present: normal exam, mucous membranes moist Neck exam: Present: normal inspection. Absent: tenderness, meningismus, lymphadenopathy Respiratory exam: Present: normal lung sounds bilaterally. Absent: respiratory distress, wheezes, rales, rhonchi, stridor Cardiovascular Exam: Present: regular rate, normal rhythm, normal heart sounds. Absent: systolic murmur, diastolic murmur, rubs, gallop, clicks GI/Abdominal exam: Present: soft, normal bowel sounds. Absent: distended, tenderness, guarding, rebound, rigid Extremities exam: Present: normal inspection, full ROM, normal capillary refill. Absent: tenderness, pedal edema, joint swelling, calf tenderness Back exam: Present: normal inspection Neurological exam: Present: alert, oriented X3, CN II-XII intact Psychiatric exam: Present: normal affect, normal mood Skin exam: Present: warm, dry, intact, normal color. Absent: rash Course Vital Signs 11/12/22 11/13/22 21:57 03:24 Temperature 97.8 F 97.9 F Pulse Rate 92 74 Respiratory 18 18 Rate Blood Pressure 139/91 152/98 O2 Sat by Pulse 100 96 Oximetry - Reevaluation(s) Reevaluation #1: 11/13/22 01:21 Medical records reviewed Reevaluation #2: 11/13/22 01:21 Patient's pain is improved Reevaluation #3: 11/13/22 03:08 Patient informed results and questions are answered Reevaluation #4: 11/13/22 01:21 Was pt. sent in by a medical professional or institution ([employer], CAGE SUPERVISOR, urgent care, hospital, or intermediate...) When possible be specific @ -no Did you speak to anyone other than the patient for history (EMS, parent, family, police, friend...)? What history was obtained from this source @ -no Did you review nursing and triage notes (agree or disagree)? Why? @ -agree Are old charts reviewed (outside hosp., previous admission, EMS record, old EKG, old radiological studies, urgent care reports/EKG's, intermediate records)? Report findings @ -yes Differential Diagnosis (chest pain, altered mental status, abdominal pain women, abdominal pain men, vaginal bleeding, weakness, fever, dyspnea, syncope, headache, dizziness, GI bleed, back pain, seizure, CVA, palpatations, mental health, musculoskeletal)? @ -prior EKG interpreted by me (3pts min.). @ -no X-rays interpreted by me (1pt min.). @ -no CT interpreted by me (1pt min.). @ -yes U/S interpreted by me (1pt. min.). @ -no What testing was considered but not performed or refused? (CT, X-rays, U/S, labs)? Why? @ -none What meds were considered but not given or refused? Why? @ -none Did you discuss the management of the patient with other professionals (professionals i.e. [employer], CAGE SUPERVISOR, lab, RT, psych nurse, social welfare research worker, claims technician, teacher, radiation safety officer, case fitter)? Give summary @ -no Was smoking cessation discussed for >3mins.? @ -no Was critical care preformed (if so, how long)? @ -no Were there social determinants of health that impacted care today? How? (Homelessness, low income, unemployed, alcoholism, drug addiction, transportation, low edu. Level, literacy, decrease access to med. care, fci, rehab)? @ -none Was there de-escalation of care discussed even if they declined (Discuss DNR or withdrawal of care, Hospice)? DNR status @ -no What co-morbidities impacted this encounter? (DM, HTN, Smoking, COPD, CAD, Cancer, CVA, ARF, Chemo, Hep., AIDS, mental health diagnosis, sleep apnea, morbid obesity)? @ -none Was patient admitted / discharged? Hospital course, mention meds given and route, prescriptions, significant lab abnormalities, going to OR and other pertinent info. @ - 61 female with sudden onset of back pain abdominal pain left-sided flank pain. Patient does have significant ovarian cyst likely causing pain. Pain is well-controlled and she can be discharged home Undiagnosed new problem with uncertain prognosis? @ -no Drug Therapy requiring intensive monitoring for toxicity (Heparin, Nitro, Insulin, Cardizem)? @ -no Were any procedures done? @ -no Diagnosis/symptom? @ -Back pain, ovarian cyst Acute, or Chronic, or Acute on Chronic? @ -Acute Uncomplicated (without systemic symptoms) or Complicated (systemic symptoms)? @ -Complicated Side effects of treatment? @ -no Exacerbation, Progression, or Severe Exacerbation? @ -exacerbation Poses a threat to life or bodily function? How? (Chest pain, USA, CT, pneumonia, PE, COPD, DKA, ARF, appy, cholecystitis, CVA, Diverticulitis, Homicidal, Suicidal, threat to staff... and all critical care pts) @ -no Reevaluation #5: 11/13/22 01:21 Differential Headache: Migraine, tension, cluster, carbon monoxide, central venous thrombosis, pension karma temporal arteritis, acute closure glaucoma, intercranial hemorrhage, mastoiditis, sinusitis, head injury, this is not meant to be an all-inclusive list. Medical Decision Making - Medical Decision Making 61 female with sudden onset of back pain abdominal pain left-sided flank pain. Patient does have significant ovarian cyst likely causing pain. Pain is well- controlled and she can be discharged home - Lab Data Result diagrams: 11/12/22 23:50 11/12/22 23:50 Lab Results 11/12/22 11/12/22 Range/Units 23:50 23:50 WBC 5.0 (3.8-10.6) k/uL RBC 3.95 (3.80-5.40) m/uL Hgb 13.3 (11.4-16.0) gm/dL Hct 39.4 (34.0-46.0) % MCV 99.7 (80.0-100.0) fL MCH 33.7 (25.0-35.0) pg MCHC 33.8 (31.0-37.0) g/dL RDW 12.6 (11.5-15.5) % Plt Count 306 (150-450) k/uL MPV 8.1 Neutrophils % 57 % Lymphocytes % 28 % Monocytes % 8 % Eosinophils % 5 % Basophils % 1 % Neutrophils # 2.9 (1.3-7.7) k/uL Lymphocytes # 1.4 (1.0-4.8) k/uL Monocytes # 0.4 (0-1.0) k/uL Eosinophils # 0.2 (0-0.7) k/uL Basophils # 0.0 (0-0.2) k/uL Sodium 141 (137-145) mmol/L Potassium 3.5 (3.5-5.1) mmol/L Chloride 107 (98-107) mmol/L Carbon Dioxide 29 (22-30) mmol/L Anion Gap 5 mmol/L BUN 15 (7-17) mg/dL Creatinine 0.75 (0.52-1.04) mg/dL Est GFR (CKD-EPI)AfAm >90 (>60 ml/min/1.73 sqM) Est GFR (CKD-EPI)NonAf 86 (>60 ml/min/1.73 sqM) Glucose 118 H (74-99) mg/dL Calcium 9.4 (8.4-10.2) mg/dL Phosphorus 3.9 (2.5-4.5) mg/dL Magnesium 2.1 (1.6-2.3) mg/dL Total Bilirubin 0.4 (0.2-1.3) mg/dL AST 28 (14-36) U/L ALT 39 H (4-34) U/L Alkaline Phosphatase 165 H (38-126) U/L Total Protein 6.4 (6.3-8.2) g/dL Albumin 4.0 (3.5-5.0) g/dL - Radiology Data Radiology results: report reviewed (CT of the abdomen and pelvis is positive for left-sided ovarian cyst 10 cm), image reviewed Disposition Clinical Impression: Left ovarian cyst, Back pain Disposition: HOME SELF-CARE Condition: Good Instructions (If sedation given, give patient instructions): Ovarian Cyst (ED) Is patient prescribed a controlled substance at d/c from ED?: No Referrals: Yo West MD [Primary Care Provider] - 1-2 days Cruzito Mishra MD [STAFF PHYSICIAN] - 1-2 days Time of Disposition: 03:00
[2022-11-12 23:57] LABS: Basophils % (A) 1 %; Eosinophils # (A) 0.2 k/uL (0-0.7); Eosinophils % (A) 5 %; HCT 39.4 % (34.0-46.0); HGB 13.3 gm/dL (11.4-16.0); Lymphocytes # (A) 1.4 k/uL (1.0-4.8); Lymphocytes % (A) 28 %; MCH 33.7 pg (25.0-35.0); MCHC 33.8 g/dL (31.0-37.0); MCV 99.7 fL (80.0-100.0); Mean Platelet Volume 8.1; Monocytes # (A) 0.4 k/uL (0-1.0); Monocytes % (A) 8 %; Neutrophils # (A) 2.9 k/uL (1.3-7.7); Neutrophils % (A) 57 %; Platelet Count 306 k/uL (150-450); RBC 3.95 m/uL (3.80-5.40); RDW 12.6 % (11.5-15.5)
[2022-11-13 00:22] LABS: ALT 39 U/L (4-34); AST 28 U/L (14-36); African American GFR (CKD) >90 (>60 ml/min/1.73 sqM); Alkaline Phosphatase 165 U/L (38-126); Anion Gap 5 mmol/L; Blood Urea Nitrogen 15 mg/dL (7-17); Calcium 9.4 mg/dL (8.4-10.2); Carbon Dioxide 29 mmol/L (22-30); Chloride 107 mmol/L (98-107); Glucose 118 mg/dL (74-99); Magnesium 2.1 mg/dL (1.6-2.3); Non-African American GFR(CKD) 86 (>60 ml/min/1.73 sqM); Phosphorus 3.9 mg/dL (2.5-4.5); Potassium 3.5 mmol/L (3.5-5.1); Sodium 141 mmol/L (137-145); Total Bilirubin 0.4 mg/dL (0.2-1.3); Total Protein 6.4 g/dL (6.3-8.2)
--- NOTE | 2022-11-13 02:24 | CT ---
EXAM: CT Abdomen and Pelvis Without Intravenous Contrast CLINICAL HISTORY: ITS.REASON CT Reason: LS pain TECHNIQUE: Axial computed tomography images of the abdomen and pelvis without intravenous contrast. CTDI is 10.9 mGy and DLP is 577.6 mGy-cm. This CT exam was performed using one or more of the following dose reduction techniques: automated exposure control, adjustment of the mA and/or kV according to patient size, and/or use of iterative reconstruction technique. COMPARISON: No relevant prior studies available. FINDINGS: Lung bases: Atelectasis at the lung bases. ABDOMEN: Liver: Unremarkable. Gallbladder and bile ducts: Unremarkable. Pancreas: Unremarkable. Spleen: Unremarkable. Adrenals: Unremarkable. Kidneys and ureters: Unremarkable. No obstructing stones. No hydronephrosis. Stomach and bowel: Colonic diverticulosis without diverticulitis. PELVIS: Appendix: Normal appendix. Bladder: Unremarkable. Reproductive: Right adnexal cystic lesion measuring 9 x 8.5 cm. ABDOMEN and PELVIS: Intraperitoneal space: Unremarkable. No free air. No significant fluid collection. Bones/joints: Degenerative changes in the lumbar spine. Soft tissues: Unremarkable. Vasculature: Unremarkable. Lymph nodes: Unremarkable. IMPRESSION: 1. Right adnexal cystic lesion measuring 9 x 8.5 cm. Recommend pelvic ultrasound for further characterization. 2. Colonic diverticulosis without diverticulitis.
[2022-11-13] MEDS ORDERED: traMADol 50 MG STARTER PACK 3 TAB BTL PO STA (03:08)
[2022-11-13 03:26] VITALS: BP 152/98; PULSE 74; TEMP 97.9
== END 2022-11-13 03:26 | disposition home or self-care (01) ==
LOC: EC 21:55
DX: N83.202 Unspecified ovarian cyst, left side (principal); K57.30 Diverticulosis of large intestine without perforation or abscess without bleeding; E07.9 Disorder of thyroid, unspecified; Z79.890 Hormone replacement therapy
CPT/HCPCS: 36415; 80053; 83735; 84100; 85025; 74176; 99284; 96374; 96361 ×4; J1885

== ENCOUNTER → 2022-11-18 | Outpatient (CLI) | payer MEDICAID ==
--- NOTE | 2022-11-18 11:23 | US ---
EXAMINATION TYPE: US transvaginal DATE OF EXAM: 11/18/2022 COMPARISON: CT 11/12/2022 CLINICAL INDICATION: Female, 61 years old with history of N83.01 FOLLICULAR CYST, R10.2 PELVIC PAIN; rt adnexal cyst TECHNIQUE: Transvaginal (TV). Date of LMP: 10 years post jack EXAM MEASUREMENTS: Uterus: 5.6x2.8x3.2 cm Endometrial Stripe: 0.2 cm Right Ovary: obscured by overlying bowel Left Ovary: obscured by overlying bowel 1. Uterus: Anteverted. There is a small hypoechoic heterogenous area measured near the endocervica l canal 0.9x0.9x0.7cm there is some punctate calcification and internal fluid present. 2. Endometrium: wnl 3. Right Ovary: Obscured by overlying bowel gas 4. Left Ovary: Obscured by overlying bowel gas 5. Bilateral Adnexa: large cystic area (8.7 x 8.6 x 8.0 cm) again seen from CT last week likely con taining a thin internal septation, unable to discern with US if the cyst is arising from the rt ovary as most of the pelvis was obscured by overlying bowel gas 6. Posterior cul-de-sac: trace free fluid Project Executive notes: Exam limited due to large cyst, bowel gas, and limited patient tolerance to transd ucer pressure IMPRESSION: 1. A heterogeneous 1 cm area along the endocervical canal. Recommend direct visualization to exclude a mucosal lesion of the cervix. 2. Large cyst within the right adnexa likely arising from the right ovary measuring 8.7 cm. A thin in ternal septation is suggested. A cystic epithelial ovarian neoplasm such as serous cyst adenoma is fa vored. Consider follow-up versus surgical evaluation. 3. Trace cul-de-sac free fluid.
== END | disposition home or self-care (01) ==
LOC: RADUSWWP 09:39
PROVIDERS: ATTEND Obstetrics & Gynecology
DX: N83.01 Follicular cyst of right ovary (principal); N88.8 Other specified noninflammatory disorders of cervix uteri; R19.09 Other intra-abdominal and pelvic swelling, mass and lump
CPT/HCPCS: 76830; 86304

== ENCOUNTER → 2023-01-20 | Outpatient (CLI) | payer MEDICAID ==
--- NOTE | 2023-01-21 09:27 | MM ---
Reason for Exam: Screening (asymptomatic). Last mammogram was performed 1 year(s) and 2 month(s) ago. Patient History: Menarche at age 13. First Full-Term at age 28. Postmenopausal. 04/21/2009, Benign Cyst Aspiration on the left side. Risk Values: Farzana 5 year model risk: 1.6%. NCI Lifetime model risk: 6.8%. Prior Study Comparison: 07/18/2018 Bilateral Screening Mammogram, [facility]. 01/01/2020 Bilateral Screening Mammogram, [facility]. 12/14/2021 Bilateral MG 3D screening mammo w/cad, [facility]. Tissue Density: The breast tissue is heterogeneously dense. This may lower the sensitivity of mammography. Findings: Analyzed By CAD. There is no suspicious group of microcalcifications or new suspicious mass in either breast. Overall Assessment: Benign, BI-RAD 2 Management: Screening Mammogram of both breasts in 1 year. . Patient should continue monthly self-breast exams. A clinical breast exam by your physician is recommended on an annual basis. This exam should not preclude additional follow-up of suspicious palpable abnormalities. Note on Fazrana scores and lifetime risk: 1. A Farzana score greater than 3% is considered moderate risk. If this is the case, consider specialist referral to assess eligibility for a risk reducing agent. 2. If overall lifetime risk for the development of breast cancer is 20% or higher, the patient may qualify for future screening with alternating mammogram and breast MRI. Electronically signed and approved by: Jose Grajeda M.D. Radiologis
== END | disposition home or self-care (01) ==
LOC: RADMAMWWP 07:53
PROVIDERS: ATTEND Internal Medicine Geriatric Medicine
DX: Z12.31 Encounter for screening mammogram for malignant neoplasm of breast (principal); Z78.0 Asymptomatic menopausal state
CPT/HCPCS: 77063; 77067

== ENCOUNTER → 2023-03-21 | Outpatient (CLI) | payer MEDICAID | END | disposition home or self-care (01) | LOC: LABWHC1 07:04 | PROVIDERS: ATTEND Physician Assistant | DX: E55.9 Vitamin D deficiency, unspecified (principal) | CPT/HCPCS: 36415; 82306; 82607 ==

== ENCOUNTER 2023-07-05 09:36 | Day surgery (SDC) | payer MEDICAID ==
[2023-07-05] MEDS: LACTATED RINGERS 1,000 ML IV SCH (10:04)
[2023-07-05 10:12] VITALS: TEMP 97.3
[2023-07-05] MEDS ORDERED: ONDANSETRON 4 MG/2 ML VIAL ONE (10:23)
[2023-07-05] MEDS: ONDANSETRON 4 MG/2 ML VIAL IVP ONE (10:25)
[2023-07-05] MEDS ORDERED: PROPOFOL 10 MG/ML 20 ML VIAL IV ONE (10:38)
--- NOTE | 2023-07-05 10:45 | P.GSHP ---
History of Present Illness H&P Date: 07/05/23 Chief Complaint: Colon cancer screening 62-year-old female here for colonoscopy. Last colonoscopy 5.5 years ago. No bowel complaints. History of colon polyps. Past Medical History Past Medical History: Thyroid Disorder Additional Past Medical History / Comment(s): Routine colonoscopy. MIGRAINES, benign ovarian mass removed/caused paralysis and bowel twisted after/no surgery for this. History of Any Multi-Drug Resistant Organisms: None Reported Date of last positivie culture/infection: c-diff MDRO Source:: 2004 Past Surgical History: Hysterectomy, Tonsillectomy Additional Past Surgical History / Comment(s): Colonoscopy. VARICOSE VEIN STRIPPING, Past Anesthesia/Blood Transfusion Reactions: Postoperative Nausea & Vomiting (PONV) Smoking Status: Former smoker - Past Family History Mother Family Medical History: No Reported History Medications and Allergies Home Medications Medication Instructions Recorded Confirmed Type Levothyroxine Sodium [Synthroid] 75 mcg PO QAM 06/16/17 07/05/23 History Multivitamins, Thera [Multivitamin 1 tab PO QAM 07/01/23 07/05/23 History (formulary)] Vit No.179/Iron/Folic 1 tab PO QAM 07/01/23 07/05/23 History [ Tablet] Allergies Allergy/AdvReac Type Severity Reaction Status Date / Time No Known Allergies Allergy Verified 07/05/23 09:51 Surgical - Exam Vital Signs Temp Pulse Resp BP Pulse Ox 97.3 F L 93 14 162/98 93 L 07/05/23 10:02 07/05/23 10:02 07/05/23 10:02 07/05/23 10:02 07/05/23 10:02 Physical exam: General: Well-developed, well-nourished HEENT: Normocephalic, sclerae nonicteric Abdomen: Nontender, nondistended Extremities: No edema Neuro: Alert and oriented Assessment and Plan (1) Colon cancer screening Narrative/Plan: Will proceed with colonoscopy at this time Current Visit: No Status: Acute Code(s): Z12.11 - ENCOUNTER FOR SCREENING FOR MALIGNANT NEOPLASM OF COLON SNOMED Code(s): 779261203
--- NOTE | 2023-07-05 11:01 | P.PCN ---
Date of Procedure: 07/05/23 Procedure(s) Performed: PREOPERATIVE DIAGNOSIS: Colon cancer screening with history of polyps POSTOPERATIVE DIAGNOSIS: Diverticulosis PROCEDURE: Colonoscopy ANESTHESIA: MAC SURGEON: Lazarus Uribe M.D. SPECIMENS: None ENDOSCOPIC PROCEDURE: The patient was placed on the endoscopy table in the left decubitus position. The Olympus colonoscope was inserted into the anus and passed under direct visualization to the base of the cecum. The appendiceal orifice was visualized. From that point the scope was slowly withdrawn inspecting all surfaces carefully. There were no neoplastic inflammatory or polypoid lesions throughout the cecum, ascending, transverse, descending, sigmoid and rectum. There was moderate left-sided diverticulosis noted. Digital rectal examination was normal. The patient was taken to the recovery room in stable condition per anesthesia guidelines. RECOMMENDATIONS: Resume diet. Repeat colonoscopy 5-7 years.
[2023-07-05 11:57] VITALS: BP 131/76; PULSE 70; RESP 20
== END 2023-07-05 11:45 | disposition home or self-care (01) ==
LOC: ORWHC2ENDO 09:36
PROVIDERS: ATTEND Surgery
DX: Z12.11 Encounter for screening for malignant neoplasm of colon (principal); K57.30 Diverticulosis of large intestine without perforation or abscess without bleeding; G43.909 Migraine, unspecified, not intractable, without status migrainosus; E03.9 Hypothyroidism, unspecified; Z86.010 Personal history of colon polyps; Z90.710 Acquired absence of both cervix and uterus; Z90.89 Acquired absence of other organs; Z87.891 Personal history of nicotine dependence; Z79.890 Hormone replacement therapy; Z79.899 Other long term (current) drug therapy
CPT/HCPCS: J2405; J2704; G0105; 45378

== ENCOUNTER → 2024-02-03 | Outpatient (CLI) | payer MEDICAID ==
--- NOTE | 2024-02-03 12:34 | MM ---
Reason for Exam: Screening (asymptomatic). Last screening mammogram was performed 12 month(s) ago. Patient History: Menarche at age 13. First Full-Term at age 28. Postmenopausal. 04/21/2009, Benign Cyst Aspiration on the left side. Risk Values: Farzana 5 year model risk: 1.6%. NCI Lifetime model risk: 6.6%. Prior Study Comparison: 01/01/2020 Bilateral Screening Mammogram, [facility]. 12/14/2021 Bilateral MG 3D screening mammo w/cad, [facility]. 01/20/2023 Bilateral MG 3D screening mammo w/cad, [facility]. Tissue Density: There are scattered areas of fibroglandular density. Findings: Analyzed By CAD. Right breast: There is no suspicious group of microcalcifications or new suspicious mass. Left breast: There is no suspicious group of microcalcifications or new suspicious mass. Overall Assessment: Negative, BI-RAD 1 Management: Screening Mammogram of both breasts in [address] [facility] will attempt to contact patient to return for supplemental views and ultrasound if indicated. Patient should continue monthly self-breast exams. A clinical breast exam by your physician is recommended on an annual basis. This exam should not preclude additional follow-up of suspicious palpable abnormalities. Note on Farzana scores and lifetime risk: 1. A Farzana score greater than 3% is considered moderate risk. If this is the case, consider specialist referral to assess eligibility for a risk reducing agent. 2. If overall lifetime risk for the development of breast cancer is 20% or higher, the patient may qualify for future screening with alternating mammogram and breast MRI. [facility], , 02/03/2024 12:31 PM. Electronically signed and approved by: Eldon Mcclelland DO
== END | disposition home or self-care (01) ==
LOC: RADMAMWWP 07:06
PROVIDERS: ATTEND Internal Medicine Geriatric Medicine
CPT/HCPCS: 77063; 77067